=== PATIENT | male | born 1960 | race Caucasian/White ===

== ENCOUNTER 2021-11-05 11:05 | Observation (INO) | payer OTHER ==
--- NOTE | 2021-11-05 12:03 | ERPHSYRPT ---
- History of Present Illness Time Seen by Provider: 11/05/21 11:58 Historian: patient, family Exam Limitations: no limitations Patient Subjective Stated Complaint: Pt c/o of dizziness, burning in the chest, cloudiness in his head, and numbness and tingling in his left arm that has been off and on for the past week, pt has [facility] but symptoms came on again today and he came to the ER Triage Nursing Assessment: Pt brought to the ER by his , hypertensive, denies pain at this time, no stroke defecits, no problems with strength, no edema, no difficulties with breathing, no facial droop, no difficulty with speech, doesn't appear to be in any distress Physician History: dizziness for over a week and placed on meclizine but having chest pressure and radiating left arm today heart score 3 for + family and Cholesterol and EKG nonspecific and symptoms.No localizing neuro findings but will proceed with neuro w/u due to TIA concern or vascular concern and pt agrees. Timing/Duration: today Activities at Onset: none Quality: pressure, throbbing, tightness Location: central Chest Pain Radiation: jaw, neck, arm Severity of Pain-Max: moderate Modifying Factors: Improves With: nothing Associated Symptoms: dizziness Prior Chest Pain/Cardiac Workup: no prior cardiac workup Nitro Today/Relief: 0.4 mg x 1, provided by ED Aspirin Treatment Today: no aspirin today Allergies/Adverse Reactions: No Known Drug Allergies Allergy (Verified 11/05/21 11:48) Home Medications: Aspirin EC 81 mg [Ecotrin 81 mg] 81 mg PO DAILY 11/05/21 [History] Cholecalciferol (Vitamin D3) [Vitamin D] 1,000 unit PO DAILY 11/05/21 [History] Meclizine HCl 25 mg [Antivert 25 mg] 25 mg PO UD 11/05/21 [History] Multivitamin [Multi-Vitamin Daily] 1 each PO DAILY 11/05/21 [History] [place]-3/Dha/Epa/Fish Oil [Fish Oil 500 mg Softgel] 1 each PO DAILY 11/05/21 [History] Vitamin B Complex 1 each PO DAILY 11/05/21 [History] Travel Risk - International Travel Have you traveled outside of the country in past 3 weeks: No - Coronavirus Screening Are you exhibiting any of the following symptoms?: No - Vaccine Status Have you recieved a Covid-19 vaccination: Yes 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 - Vaccination Dates Date of 2cond Vaccination (if applicable): 12/2020 - Review of Systems Constitutional: No Fever, No Chills Eyes: No Symptoms Ears, Nose, & Throat: No Symptoms Respiratory: No Cough, No Dyspnea Cardiac: Chest Pain, No Edema, No Syncope Abdominal/Gastrointestinal: No Abdominal Pain, No Nausea, No Vomiting, No Diarrhea Genitourinary Symptoms: No Dysuria Musculoskeletal: No Back Pain, No Neck Pain Skin: No Rash Neurological: No Dizziness, No Focal Weakness, No Sensory Changes Psychological: No Symptoms Endocrine: No Symptoms All Other Systems: Reviewed and Negative - Past Medical History Pertinent Past Medical History: Yes Neurological History: No Pertinent History Cardiac History: No Pertinent History Respiratory History: No Pertinent History Endocrine Medical History: No Pertinent History Musculoskeletal History: Arthritis Other Medical History: L knee scope 2017 - Past Surgical History Past Surgical History: Yes Gastrointestinal: Hernia Repair Musculoskeletal: Orthopedic Surgery Other Surgical History: knee surgery - Social History Smoking Status: Former smoker Exposure to second hand smoke: No Drug Use: none Patient Lives Alone: No - Nursing Vital Signs Nursing Vital Signs: Initial Vital Signs Temperature 98.3 F 11/05/21 11:34 Pulse Rate 66 11/05/21 11:34 Respiratory Rate 15 11/05/21 11:34 Blood Pressure 157/90 11/05/21 11:34 O2 Sat by Pulse Oximetry 96 11/05/21 11:34 Pain Scale Pain Intensity 0 - Physical Exam General Appearance: no apparent distress, alert Eye Exam: PERRL/EOMI, eyes nml inspection Ears, Nose, Throat Exam: normal ENT inspection, moist mucous membranes Neck Exam: normal inspection, non-tender, supple, full range of motion Respiratory Exam: normal breath sounds, lungs clear, No respiratory distress Cardiovascular Exam: regular rate/rhythm, normal heart sounds Gastrointestinal/Abdomen Exam: soft, No tenderness, No mass Rectal Exam: deferred Back Exam: normal inspection, No CVA tenderness, No vertebral tenderness Extremity Exam: normal inspection, normal range of motion Neurologic Exam: alert, oriented x 3, cooperative, 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, normal mood/affect, nml station & gait, sensation nml, No motor deficits Skin Exam: normal color, warm, dry SpO2 Interpretation: normal SpO2: 96 O2 Delivery: Room Air - Course Nursing assessment & vital signs reviewed: Yes EKG Interpreted by Me: Left Heron Deviation, Non-specific ST Changes - CT Exams Head CT Interpretation: Tele-radiologist Report, No/Intracranial Hemorrhag Ordered Tests: Active Orders 24 hr Category Date Time Status EKG-ER Only STAT Care 11/05/21 12:05 Active IV Insertion STAT Care 11/05/21 12:05 Active NPO (ED) STAT Care 11/05/21 12:07 Active Pulse Oximetry (ED) STAT Care 11/05/21 12:05 Active Consult Neurology ROUTINE Cons 11/05/21 12:16 Completed CHEST 1 VIEW (PORTABLE) Stat Exams 11/05/21 13:48 Taken HEAD WITHOUT CONTRAST [CT] Stat Exams 11/05/21 13:05 Taken CBC W DIFF Stat Lab 11/05/21 12:33 Completed CMP Stat Lab 11/05/21 12:33 Completed D-DIMER QUANTITATIVE Stat Lab 11/05/21 12:33 Completed NT PRO BNP Stat Lab 11/05/21 12:33 Completed POCT GLUCOSE Stat Lab 11/05/21 11:36 Completed PROTIME WITH INR Stat Lab 11/05/21 12:33 Completed PTT Stat Lab 11/05/21 12:33 Completed TROPONIN Q3H Lab 11/05/21 12:33 Completed TROPONIN Q3H Lab 11/05/21 15:15 Completed TROPONIN Q3H Lab 11/05/21 18:15 Ordered TROPONIN Q3H Lab 11/05/21 21:15 Ordered TROPONIN Q3H Lab 11/06/21 00:15 Ordered Medication Summary Generic Name Dose Route Start Last Admin Trade Name Freq PRN Reason Stop Dose Admin Sodium Chloride 1,000 mls @ 100 mls/hr 11/05/21 12:15 11/05/21 12:22 Sodium Chloride 0.9% 1000 Ml IV 12/05/21 12:14 100 mls/hr .Q10H ELIJAH Administration Lab/Rad Data: Laboratory Result Diagrams 11/05/21 12:33 11/05/21 12:33 Laboratory Results 11/05/21 11/05/21 11/05/21 Range/Units 15:15 12:33 12:33 WBC (4.0-10.5) K/mm3 RBC (4.1-5.6) M/mm3 Hgb (12.5-18.0) gm/dl Hct (42-50) % MCV (78-100) fl MCH (26-32) pg MCHC (32-36) g/dl RDW (11.5-14.0) % Plt Count (150-450) K/mm3 MPV (7.5-11.0) fl Gran % (36.0-66.0) % Eos # (Auto) (0-0.5) Absolute Lymphs (auto) (1.0-4.6) Absolute Monos (auto) (0.0-1.3) Lymphocytes % (24.0-44.0) % Monocytes % (0.0-12.0) % Eosinophils % (0.00-5.0) % Basophils % (0.0-0.4) % Absolute Granulocytes (1.4-6.9) Basophils # (0-0.4) PT 10.8 (9.4-12.5) SECONDS INR 0.92 (0.8-3.0) APTT 30.4 (25.1-36.5) SECONDS D-Dimer 485 (215-500) ng/mL Sodium (137-145) mmol/L Potassium (3.5-5.1) mmol/L Chloride (98-107) mmol/L Carbon Dioxide (22-30) mmol/L Anion Gap (5-15) MEQ/L BUN (9-20) mg/dL Creatinine (0.66-1.25) mg/dL Estimated GFR ML/MIN Glucose (74-106) mg/dL POC Glucometer (74 to 106) mg/dL Calcium (8.4-10.2) mg/dL Total Bilirubin (0.2-1.3) mg/dL AST (17-59) U/L ALT (0-50) U/L Alkaline Phosphatase (38-126) U/L Troponin I < 0.012 < 0.012 (0.000-0.034) ng/mL NT-Pro-B Natriuret Pep (0-900) pg/mL Serum Total Protein (6.3-8.2) g/dL Albumin (3.5-5.0) g/dL 11/05/21 11/05/21 11/05/21 Range/Units 12:33 12:33 11:36 WBC 8.9 (4.0-10.5) K/mm3 RBC 4.84 (4.1-5.6) M/mm3 Hgb 14.7 (12.5-18.0) gm/dl Hct 43.4 (42-50) % MCV 89.7 (78-100) fl MCH 30.4 (26-32) pg MCHC 33.9 (32-36) g/dl RDW 13.6 (11.5-14.0) % Plt Count 355 (150-450) K/mm3 MPV 10.2 (7.5-11.0) fl Gran % 68.2 H (36.0-66.0) % Eos # (Auto) 0.08 (0-0.5) Absolute Lymphs (auto) 2.14 (1.0-4.6) Absolute Monos (auto) 0.58 (0.0-1.3) Lymphocytes % 24.1 (24.0-44.0) % Monocytes % 6.5 (0.0-12.0) % Eosinophils % 0.9 (0.00-5.0) % Basophils % 0.3 (0.0-0.4) % Absolute Granulocytes 6.05 (1.4-6.9) Basophils # 0.03 (0-0.4) PT (9.4-12.5) SECONDS INR (0.8-3.0) APTT (25.1-36.5) SECONDS D-Dimer (215-500) ng/mL Sodium 139 (137-145) mmol/L Potassium 3.8 (3.5-5.1) mmol/L Chloride 106 (98-107) mmol/L Carbon Dioxide 24 (22-30) mmol/L Anion Gap 12.8 (5-15) MEQ/L BUN 15 (9-20) mg/dL Creatinine 0.66 (0.66-1.25) mg/dL Estimated GFR > 60.0 ML/MIN Glucose 95 (74-106) mg/dL POC Glucometer 108 H (74 to 106) mg/dL Calcium 9.4 (8.4-10.2) mg/dL Total Bilirubin 1.30 (0.2-1.3) mg/dL AST 26 (17-59) U/L ALT 40 (0-50) U/L Alkaline Phosphatase 61 (38-126) U/L Troponin I (0.000-0.034) ng/mL NT-Pro-B Natriuret Pep 56.4 (0-900) pg/mL Serum Total Protein 7.6 (6.3-8.2) g/dL Albumin 4.5 (3.5-5.0) g/dL - Progress Progress: improved Air Movement: good Progress Note: 11/05/21 14:14 chest symptoms resolved prior to giving any nitro- pt advised that this could still be cardiac and that observiation in hospital was advisaed even with normal enzymes. 11/05/21 16:34 Neuro consult completed - no acute CVA. possible TIA - resolved discussed with pt and Dr. Duong and all agree best to place on obs and have [facility] neuro w/u in house and follow trops. Blood Culture(s) Obtained: No Antibiotics given: No Discussed with : Mariajose Will see patient in: hospital (observation) Counseled pt/family regarding: lab results, diagnosis, need for follow-up, rad results - Departure Departure Disposition: Observation Clinical Impression: Rule out TIA, Chest pain Condition: Good Critical Care Time: No Referrals: GERBER BONILLA [NON-STAFF PHY W/O PRIVILEGES] - Follow up/PCP as directed
[2021-11-05] MEDS: Sodium Chloride 0.9% 1000 ML 1,000 ML IV SCH (12:22)
[2021-11-05 12:36] LABS: Absolute Neutrophil Ct (ANC) 6.05 (1.4-6.9); Basophil (Absolute #) 0.03 (0-0.4); Eosinophil % 0.9 % (0.00-5.0); Eosinophil (Absolute #) 0.08 (0-0.5); Hematocrit 43.4 % (42-50); Hemoglobin 14.7 gm/dl (12.5-18.0); Lymphocyte (Absolute #) 2.14 (1.0-4.6); Lymphocytes % 24.1 % (24.0-44.0); Mean Cell Volume 89.7 fl (78-100); Mean Corpuscular Hemoglobin 30.4 pg (26-32); Mean Corpuscular Hgb Concent. 33.9 g/dl (32-36); Mean Platelet Volume 10.2 fl (7.5-11.0); Monocyte (Absolute #) 0.58 (0.0-1.3); Monocytes % 6.5 % (0.0-12.0); Neutrophil % 68.2 % (36.0-66.0); Platelet Count 355 K/mm3 (150-450); Red Blood Count 4.84 M/mm3 (4.1-5.6); Red Cell Distribution Width 13.6 % (11.5-14.0); White Blood Count 8.9 K/mm3 (4.0-10.5)
[2021-11-05 12:58] LABS: INR 0.92 (0.8-3.0); PROTIME 10.8 SECONDS (9.4-12.5)
[2021-11-05 13:00] LABS: PTT 30.4 SECONDS (25.1-36.5)
[2021-11-05 13:10] LABS: ALBUMIN 4.5 g/dL (3.5-5.0); ALKALINE PHOSPHATASE 61 U/L (38-126); ANION GAP 12.8 MEQ/L (5-15); BLOOD UREA NITROGEN 15 mg/dL (9-20); CHLORIDE 106 mmol/L (98-107); Calcium 9.4 mg/dL (8.4-10.2); Carbon Dioxide 24 mmol/L (22-30); Creatinine 1 0.66 mg/dL (0.66-1.25); EST GLOMERULAR FILTRATION RATE > 60.0 ML/MIN; Glucose 95 mg/dL (74-106); NT PRO BNP 56.4 pg/mL (0-900); Potassium 3.8 mmol/L (3.5-5.1); SGOT/AST 26 U/L (17-59); SGPT/ALT 40 U/L (0-50); SODIUM 139 mmol/L (137-145); Total Protein 7.6 g/dL (6.3-8.2)
[2021-11-05 17:51] LABS: INFLUENZA A NEGATIVE (NEGATIVE); INFLUENZA B NEGATIVE (NEGATIVE); RESPIRATORY SYNCTIAL VIRUS NEGATIVE (Negative); SARS-CoV-2 Xpert Express NEGATIVE (NEGATIVE)
--- NOTE | 2021-11-05 19:11 | XRAY ---
Indication: Pain and dizziness. Left hand numbness. Multiple contiguous axial images obtained through the head without contrast. Comparison: None Normal appearing brain parenchyma, ventricles, and bony calvarium for patient's age. Paranasal sinuses and mastoid air cells are clear. Impression: Normal CT head without contrast exam. Comment: Preliminary interpretation made by [facility]. No critical discrepancy.
--- NOTE | 2021-11-05 19:12 | XRAY ---
Indication: Chest pain. Comparison: None Portable apical lordotic chest demonstrates normal heart and lungs. Bony thorax intact with mild osteopenia and degenerative changes.
[2021-11-05] MEDS ORDERED: HUMULIN R SQ PRN (19:47)
[2021-11-05] MEDS ORDERED: MAALOX ES 30 ML UNIT DOSE PO PRN (19:47)
[2021-11-05] MEDS ORDERED: TYLENOL 325 MG PO PRN (19:47)
[2021-11-05] MEDS ORDERED: MILK OF MAGNESIA 30 ML PO PRN (19:47)
[2021-11-05] MEDS ORDERED: Senokot-S Tablet PO PRN (19:47)
[2021-11-05] MEDS ORDERED: Zofran 4 MG/2 ML VIAL IV PRN (19:47)
[2021-11-05] MEDS: Pepcid 20 MG VIAL IV SCH (22:59)
[2021-11-06] MEDS ORDERED: Sodium Chloride 0.9% 1000 ML 1,000 ML ONE (00:35)
[2021-11-06] MEDS: Sodium Chloride 0.9% 1000 ML 1,000 ML IV SCH ×2 (00:36→14:00)
[2021-11-06 04:47] LABS: Risk Ratio 4.7
[2021-11-06 08:02] VITALS: BP 142/77; PULSE 58; O2SAT 97
--- NOTE | 2021-11-06 09:38 | PCM.HP ---
History of Present Illness - Chief Complaint Chief Complaint: Chest pain rule out ACS History of Present Illness: is a 61 year old male pt with NLMD who was admitted through ER with CP and dizziness, to r/o TIA. He's had 4 episodes of lightheadedness, starting abotu 1 week ago. The first happened while driving, second in a car in parking lot, third standing watching TV, most recently while sitting on the porch and with that episode his L arm became numb and tingly. He also gets a burning pain in his temples bilaterally. 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 Episodes always happen at 10:30-11am. He had gone to urgent care and his ear was cleaned out and he was given meclizine (which he apparently didn't take). Pt has +FHx and hx increased cholesterol. - Review of Systems Cardiac: Chest Pain Neurological: Dizziness, Headache, Parasthesia Psychological: Anxiety (has been under a lot of stress in the past week) Medications & Allergies Home Medications: Home Medication List Aspirin EC 81 mg [Ecotrin 81 mg] 81 mg PO DAILY 11/05/21 [History Confirmed 11/05/21] Cholecalciferol (Vitamin D3) [Vitamin D] 1,000 unit PO DAILY 11/05/21 [History Confirmed 11/05/21] Meclizine HCl 25 mg [Antivert 25 mg] 25 mg PO UD 11/05/21 [History Confirmed 11/05/21] Multivitamin [Multi-Vitamin Daily] 1 each PO DAILY 11/05/21 [History Confirmed 11/05/21] [place]-3/Dha/Epa/Fish Oil [Fish Oil 500 mg Softgel] 1 each PO DAILY 11/05/21 [History Confirmed 11/05/21] Vitamin B Complex 1 each PO DAILY 11/05/21 [History Confirmed 11/05/21] Allergies/Adverse Reactions: Allergies Allergy/AdvReac Type Severity Reaction Status Date / Time No Known Drug Allergies Allergy Verified 11/05/21 11:48 - Past Medical History Past Medical History: Yes Neurological History: No Pertinent History Cardiac History: No Pertinent History Respiratory History: No Pertinent History Endocrine Medical History: No Pertinent History Musculoskelatal History: Arthritis Comment: L knee scope 2018 - Past Surgical History Past Surgical History: Yes GI Surgical History: Hernia Repair Musculskeletal Surgical Hx: Orthopedic Surgery Other Surgical History: knee surgery - Social History Smoking Status: Former smoker Exposure to second hand smoke: No Alcohol: None Drug Use: none - Physical Exam Vital Signs: Vital Signs - 24 hr Temp Pulse Resp BP Pulse Ox 11/06/21 08:00 97.8 F 58 L 17 142/77 97 11/06/21 03:19 97.1 F 55 L 17 143/71 96 11/06/21 00:00 97.1 F 66 16 130/72 96 11/05/21 20:05 81 17 97 11/05/21 20:00 98.3 F 81 17 131/81 97 11/05/21 19:00 82 18 131/81 97 11/05/21 17:13 65 17 149/84 96 11/05/21 16:57 63 16 126/80 96 11/05/21 16:36 96 11/05/21 14:00 56 L 18 145/77 97 11/05/21 13:06 56 L 18 130/83 97 11/05/21 12:17 97 11/05/21 11:34 98.3 F 66 15 157/90 96 General Appearance: no apparent distress, alert Neurologic Exam: oriented x 3, cooperative, 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, other (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 5/5 bilat) Eye Exam: eyes nml inspection Ears, Nose, Throat Exam: pharynx normal, moist mucous membranes, No pharyngeal erythema Neck Exam: normal inspection, non-tender, No lymphadenopathy Respiratory Exam: normal breath sounds, lungs clear, No crackles/rales, No rhonchi, No wheezing Cardiovascular Exam: regular rate/rhythm, normal heart sounds, No murmur Gastrointestinal/Abdomen Exam: soft, normal bowel sounds, No tenderness, No distention, No mass, No guarding, No rebound Back Exam: normal inspection, No CVA tenderness, No rash Extremity Exam: normal inspection, No pedal edema, No swelling Skin Exam: normal color, warm, dry, No rash Results - Labs Lab/Micro Results: Lab Results-Last 24 Hours 11/05/21 11/05/21 11/05/21 Range/Units 11:36 12:33 12:33 WBC 8.9 (4.0-10.5) K/mm3 RBC 4.84 (4.1-5.6) M/mm3 Hgb 14.7 (12.5-18.0) gm/dl Hct 43.4 (42-50) % MCV 89.7 (78-100) fl MCH 30.4 (26-32) pg MCHC 33.9 (32-36) g/dl RDW 13.6 (11.5-14.0) % Plt Count 355 (150-450) K/mm3 MPV 10.2 (7.5-11.0) fl Gran % 68.2 H (36.0-66.0) % Eos # (Auto) 0.08 (0-0.5) Absolute Lymphs (auto) 2.14 (1.0-4.6) Absolute Monos (auto) 0.58 (0.0-1.3) Lymphocytes % 24.1 (24.0-44.0) % Monocytes % 6.5 (0.0-12.0) % Eosinophils % 0.9 (0.00-5.0) % Basophils % 0.3 (0.0-0.4) % Absolute Granulocytes 6.05 (1.4-6.9) Basophils # 0.03 (0-0.4) PT (9.4-12.5) SECONDS INR (0.8-3.0) APTT (25.1-36.5) SECONDS D-Dimer (215-500) ng/mL Sodium 139 (137-145) mmol/L Potassium 3.8 (3.5-5.1) mmol/L Chloride 106 (98-107) mmol/L Carbon Dioxide 24 (22-30) mmol/L Anion Gap 12.8 (5-15) MEQ/L BUN 15 (9-20) mg/dL Creatinine 0.66 (0.66-1.25) mg/dL Estimated GFR > 60.0 ML/MIN Glucose 95 (74-106) mg/dL POC Glucometer 108 H (74 to 106) mg/dL Hemoglobin A1c (4.5-6.0) % Calcium 9.4 (8.4-10.2) mg/dL Total Bilirubin 1.30 (0.2-1.3) mg/dL AST 26 (17-59) U/L ALT 40 (0-50) U/L Alkaline Phosphatase 61 (38-126) U/L Troponin I (0.000-0.034) ng/mL NT-Pro-B Natriuret Pep 56.4 (0-900) pg/mL Serum Total Protein 7.6 (6.3-8.2) g/dL Albumin 4.5 (3.5-5.0) g/dL Triglycerides (30-150) mg/dL Cholesterol (50-200) mg/dL LDL Cholesterol (30-100) mg/dL HDL Cholesterol (40-60) mg/dL Heart Disease Risk Ratio Influenza Type A Ag (NEGATIVE) Influenza Type B Ag (NEGATIVE) RSV (PCR) (Negative) SARS-CoV-2 (PCR) (NEGATIVE) 11/05/21 11/05/21 11/05/21 Range/Units 12:33 12:33 15:15 WBC (4.0-10.5) K/mm3 RBC (4.1-5.6) M/mm3 Hgb (12.5-18.0) gm/dl Hct (42-50) % MCV (78-100) fl MCH (26-32) pg MCHC (32-36) g/dl RDW (11.5-14.0) % Plt Count (150-450) K/mm3 MPV (7.5-11.0) fl Gran % (36.0-66.0) % Eos # (Auto) (0-0.5) Absolute Lymphs (auto) (1.0-4.6) Absolute Monos (auto) (0.0-1.3) Lymphocytes % (24.0-44.0) % Monocytes % (0.0-12.0) % Eosinophils % (0.00-5.0) % Basophils % (0.0-0.4) % Absolute Granulocytes (1.4-6.9) Basophils # (0-0.4) PT 10.8 (9.4-12.5) SECONDS INR 0.92 (0.8-3.0) APTT 30.4 (25.1-36.5) SECONDS D-Dimer 485 (215-500) ng/mL Sodium (137-145) mmol/L Potassium (3.5-5.1) mmol/L Chloride (98-107) mmol/L Carbon Dioxide (22-30) mmol/L Anion Gap (5-15) MEQ/L BUN (9-20) mg/dL Creatinine (0.66-1.25) mg/dL Estimated GFR ML/MIN Glucose (74-106) mg/dL POC Glucometer (74 to 106) mg/dL Hemoglobin A1c (4.5-6.0) % Calcium (8.4-10.2) mg/dL Total Bilirubin (0.2-1.3) mg/dL AST (17-59) U/L ALT (0-50) U/L Alkaline Phosphatase (38-126) U/L Troponin I < 0.012 < 0.012 (0.000-0.034) ng/mL NT-Pro-B Natriuret Pep (0-900) pg/mL Serum Total Protein (6.3-8.2) g/dL Albumin (3.5-5.0) g/dL Triglycerides (30-150) mg/dL Cholesterol (50-200) mg/dL LDL Cholesterol (30-100) mg/dL HDL Cholesterol (40-60) mg/dL Heart Disease Risk Ratio Influenza Type A Ag (NEGATIVE) Influenza Type B Ag (NEGATIVE) RSV (PCR) (Negative) SARS-CoV-2 (PCR) (NEGATIVE) 11/05/21 11/05/21 11/05/21 Range/Units 16:58 18:13 21:11 WBC (4.0-10.5) K/mm3 RBC (4.1-5.6) M/mm3 Hgb (12.5-18.0) gm/dl Hct (42-50) % MCV (78-100) fl MCH (26-32) pg MCHC (32-36) g/dl RDW (11.5-14.0) % Plt Count (150-450) K/mm3 MPV (7.5-11.0) fl Gran % (36.0-66.0) % Eos # (Auto) (0-0.5) Absolute Lymphs (auto) (1.0-4.6) Absolute Monos (auto) (0.0-1.3) Lymphocytes % (24.0-44.0) % Monocytes % (0.0-12.0) % Eosinophils % (0.00-5.0) % Basophils % (0.0-0.4) % Absolute Granulocytes (1.4-6.9) Basophils # (0-0.4) PT (9.4-12.5) SECONDS INR (0.8-3.0) APTT (25.1-36.5) SECONDS D-Dimer (215-500) ng/mL Sodium (137-145) mmol/L Potassium (3.5-5.1) mmol/L Chloride (98-107) mmol/L Carbon Dioxide (22-30) mmol/L Anion Gap (5-15) MEQ/L BUN (9-20) mg/dL Creatinine (0.66-1.25) mg/dL Estimated GFR ML/MIN Glucose (74-106) mg/dL POC Glucometer 112 H (74 to 106) mg/dL Hemoglobin A1c (4.5-6.0) % Calcium (8.4-10.2) mg/dL Total Bilirubin (0.2-1.3) mg/dL AST (17-59) U/L ALT (0-50) U/L Alkaline Phosphatase (38-126) U/L Troponin I < 0.012 (0.000-0.034) ng/mL NT-Pro-B Natriuret Pep (0-900) pg/mL Serum Total Protein (6.3-8.2) g/dL Albumin (3.5-5.0) g/dL Triglycerides (30-150) mg/dL Cholesterol (50-200) mg/dL LDL Cholesterol (30-100) mg/dL HDL Cholesterol (40-60) mg/dL Heart Disease Risk Ratio Influenza Type A Ag NEGATIVE (NEGATIVE) Influenza Type B Ag NEGATIVE (NEGATIVE) RSV (PCR) NEGATIVE (Negative) SARS-CoV-2 (PCR) NEGATIVE (NEGATIVE) 11/05/21 11/06/21 11/06/21 Range/Units 21:17 04:09 04:09 WBC (4.0-10.5) K/mm3 RBC (4.1-5.6) M/mm3 Hgb (12.5-18.0) gm/dl Hct (42-50) % MCV (78-100) fl MCH (26-32) pg MCHC (32-36) g/dl RDW (11.5-14.0) % Plt Count (150-450) K/mm3 MPV (7.5-11.0) fl Gran % (36.0-66.0) % Eos # (Auto) (0-0.5) Absolute Lymphs (auto) (1.0-4.6) Absolute Monos (auto) (0.0-1.3) Lymphocytes % (24.0-44.0) % Monocytes % (0.0-12.0) % Eosinophils % (0.00-5.0) % Basophils % (0.0-0.4) % Absolute Granulocytes (1.4-6.9) Basophils # (0-0.4) PT (9.4-12.5) SECONDS INR (0.8-3.0) APTT (25.1-36.5) SECONDS D-Dimer (215-500) ng/mL Sodium (137-145) mmol/L Potassium (3.5-5.1) mmol/L Chloride (98-107) mmol/L Carbon Dioxide (22-30) mmol/L Anion Gap (5-15) MEQ/L BUN (9-20) mg/dL Creatinine (0.66-1.25) mg/dL Estimated GFR ML/MIN Glucose (74-106) mg/dL POC Glucometer (74 to 106) mg/dL Hemoglobin A1c (4.5-6.0) % Calcium (8.4-10.2) mg/dL Total Bilirubin (0.2-1.3) mg/dL AST (17-59) U/L ALT (0-50) U/L Alkaline Phosphatase (38-126) U/L Troponin I < 0.012 < 0.012 (0.000-0.034) ng/mL NT-Pro-B Natriuret Pep (0-900) pg/mL Serum Total Protein (6.3-8.2) g/dL Albumin (3.5-5.0) g/dL Triglycerides 101 (30-150) mg/dL Cholesterol 238 H (50-200) mg/dL LDL Cholesterol 150 H (30-100) mg/dL HDL Cholesterol 51 (40-60) mg/dL Heart Disease Risk Ratio 4.7 Influenza Type A Ag (NEGATIVE) Influenza Type B Ag (NEGATIVE) RSV (PCR) (Negative) SARS-CoV-2 (PCR) (NEGATIVE) 11/06/21 11/06/21 Range/Units 04:09 07:30 WBC (4.0-10.5) K/mm3 RBC (4.1-5.6) M/mm3 Hgb (12.5-18.0) gm/dl Hct (42-50) % MCV (78-100) fl MCH (26-32) pg MCHC (32-36) g/dl RDW (11.5-14.0) % Plt Count (150-450) K/mm3 MPV (7.5-11.0) fl Gran % (36.0-66.0) % Eos # (Auto) (0-0.5) Absolute Lymphs (auto) (1.0-4.6) Absolute Monos (auto) (0.0-1.3) Lymphocytes % (24.0-44.0) % Monocytes % (0.0-12.0) % Eosinophils % (0.00-5.0) % Basophils % (0.0-0.4) % Absolute Granulocytes (1.4-6.9) Basophils # (0-0.4) PT (9.4-12.5) SECONDS INR (0.8-3.0) APTT (25.1-36.5) SECONDS D-Dimer (215-500) ng/mL Sodium (137-145) mmol/L Potassium (3.5-5.1) mmol/L Chloride (98-107) mmol/L Carbon Dioxide (22-30) mmol/L Anion Gap (5-15) MEQ/L BUN (9-20) mg/dL Creatinine (0.66-1.25) mg/dL Estimated GFR ML/MIN Glucose (74-106) mg/dL POC Glucometer 115 H (74 to 106) mg/dL Hemoglobin A1c 5.54 (4.5-6.0) % Calcium (8.4-10.2) mg/dL Total Bilirubin (0.2-1.3) mg/dL AST (17-59) U/L ALT (0-50) U/L Alkaline Phosphatase (38-126) U/L Troponin I (0.000-0.034) ng/mL NT-Pro-B Natriuret Pep (0-900) pg/mL Serum Total Protein (6.3-8.2) g/dL Albumin (3.5-5.0) g/dL Triglycerides (30-150) mg/dL Cholesterol (50-200) mg/dL LDL Cholesterol (30-100) mg/dL HDL Cholesterol (40-60) mg/dL Heart Disease Risk Ratio Influenza Type A Ag (NEGATIVE) Influenza Type B Ag (NEGATIVE) RSV (PCR) (Negative) SARS-CoV-2 (PCR) (NEGATIVE) Accuchecks Date 11/06/21 Date 11/05/21 Time 07:25 Time 22:00 - Radiology Impressions Radiology Exams & Impressions: Radiology Procedures Category Date Time Status CHEST 1 VIEW (PORTABLE) Stat Exams 11/05/21 13:48 Completed ECHO W/2D AND DOPPLER [US] Routine Exams 11/06/21 10:00 Taken HEAD WITHOUT CONTRAST [CT] Stat Exams 11/05/21 13:05 Completed MRA BRAIN WITH CONTRAST [MRI] Routine Exams 11/06/21 08:00 Ordered MRA NECK WITH CONTRAST [MRI] Routine Exams 11/06/21 08:00 Ordered MRI BRAIN W & W/O CONTRAST [MRI] Routine Exams 11/06/21 08:00 Ordered - Other Procedures and Tests Respiratory Therapy 11/07/21 05:00 EKG DAILY 11/08/21 05:00 EKG DAILY Assessment/Plan (1) Chest pain Current Visit: Yes Status: Acute Qualifiers: Chest pain type: unspecified Qualified Code(s): R07.9 - Chest pain, unspecified Assessment & Plan: troponins neg x 5. Code(s): R07.9 - CHEST PAIN, UNSPECIFIED (2) TIA (transient ischemic attack) Current Visit: Yes Status: Suspected Assessment & Plan: Pt to have MRI head, MRA head/neck per teleneurology consult (see their note for further details). Labs done/pending. on ASA 81mg/d and lovenox 40mg SQ daily. Will need to see neurology OP. If there is intracranial atherosclerosis, will load plavix 300mg then take 75mg/d for 90d. Code(s): G45.9 - TRANSIENT CEREBRAL ISCHEMIC ATTACK, UNSPECIFIED (3) Dizziness Current Visit: Yes Status: Resolved Code(s): R42 - DIZZINESS AND GIDDINESS (4) Headache Current Visit: Yes Status: Acute Qualifiers: Headache type: unspecified Headache chronicity pattern: episodic headache Intractability: not intractable Qualified Code(s): R51.9 - Headache, unspecified Assessment & Plan: Check esr to r/o temporal arteritis. Code(s): R51.9 - HEADACHE, UNSPECIFIED
[2021-11-06] MEDS: Pepcid 20 MG VIAL IV SCH (09:42)
[2021-11-06] MEDS ORDERED: ENOXAPARIN SODIUM SQ SCH (10:00)
[2021-11-06] MEDS ORDERED: Ecotrin 325 MG PO SCH (10:00)
[2021-11-06] MEDS ORDERED: ECOTRIN 81 MG PO SCH (10:00)
[2021-11-06] MEDS ORDERED: Ativan 2 MG/1 ML VIAL IV ONE (11:48)
--- NOTE | 2021-11-06 14:03 | XRAY ---
Indication: TIA. Conventional contrast enhanced MRA neck performed using 20 cc Dotarem contrast. Comparison: None Visualized common carotid, carotid bulb, internal carotid, and external carotid arteries are bilaterally normal in MRA appearance. Vertebral arteries are bilaterally symmetric with signal loss involving the transverse segment bilaterally. Otherwise no critical stenosis, obstruction, or AV malformation. Impression: 1. Signal loss transverse segment of both distal vertebral arteries. Remaining vertebral arteries proximal and distal to this are normal in MRA appearance. 2. Remaining MRA neck with contrast exam is negative for critical stenosis/obstruction.
--- NOTE | 2021-11-06 14:05 | XRAY ---
Indication: TIA. Multi-slab 3-D [id number] MRA [place] performed. Comparison: None Distal internal carotid arteries are normal in course and caliber bilaterally. Normal carotid terminus with normal branching A1 and M1 segments bilaterally. More distal anterior cerebral and middle cerebral arteries are normal in MRA appearance. Posterior circulation demonstrates normal MRA appearance to the basilar, left/right posterior cerebral, and left/right superior cerebellar arteries. Impression: Normal MRA [place].
--- NOTE | 2021-11-06 14:07 | XRAY ---
Indication: TIA. Sagittal, coronal, and axial MRI brain performed using pre-and post T1, T2, FLAIR, diffusion, and ADC sequences. 20 cc Dotarem contrast used. Comparison: None Ventriculosulcal pattern appears symmetric. No acute intracranial hemorrhage, abnormal extra-axial fluid collection, or mass effect. Diffusion images are negative for restricted signal. Following gadolinium, there is no abnormal enhancing intra or extra-axial mass. Fourth ventricle is midline without hydrocephalus. 7/8 cranial nerve complex bilaterally symmetric. Normal flow void signal within the major intracerebral circulation. Normal appearing craniocervical junction and sella turcica. Paranasal sinuses are clear. Impression: Negative MRI brain with contrast exam.
[2021-11-06] MEDS ORDERED: LIPITOR 40MG PO SCH (22:00)
== END 2021-11-06 16:17 | disposition home or self-care (01) ==
LOC: ED 11:05 → MED SURG 19:41
PROVIDERS: ADMIT Family Medicine; ATTEND Family Medicine
DX: R07.9 Chest pain, unspecified (principal); G45.9 Transient cerebral ischemic attack, unspecified; R42 Dizziness and giddiness; R51.9 Headache, unspecified; F41.9 Anxiety disorder, unspecified; Z20.828 Contact with and (suspected) exposure to other viral communicable diseases; Z79.899 Other long term (current) drug therapy
CPT/HCPCS: 0241U; 36000; 36415; 70450; 70544; 70548; 70553; 71045; 80053; 80061; 82947; 83036; 83721; 83880; 84443; 84484; 85025; 85379; 85610; 85652; 85730; 93005; 93268; 93306; 94760; 99285; G0378; J1650; J2060; A9270-GY

== ENCOUNTER 2022-01-25 08:20 | Day surgery (SDC) | payer OTHER ==
--- NOTE | 2022-01-18 07:52 | HP ---
DATE OF SURGERY: 01/25/2022 HISTORY OF PRESENT ILLNESS: The patient is a 61-year-old male who presents for screening colonoscopy. The patient has not had any colonoscopy to date. The patient denies GI signs or symptoms at this time. The patient reports father had colon cancer diagnosed in his mid-50's. PAST MEDICAL HISTORY: Hyperlipidemia. PAST SURGICAL HISTORY: Right knee surgery. ALLERGIES: NKDA. MEDICATIONS: Aspirin, vitamins, vitamin B, atorvastatin. FAMILY HISTORY: Bone cancer. SOCIAL HISTORY: Two to six alcoholic drinks every other day. REVIEW OF SYSTEMS: CONSTITUTIONAL: Denies fever or chills. CHEST: Denies shortness of breath. CVS: Denies chest pain. ABDOMEN: Denies abdominal pain, nausea, vomiting, diarrhea, constipation or rectal bleeding. PHYSICAL EXAMINATION: GENERAL: No acute distress. CHEST: Nonlabored. No shortness of breath. CVS: Regular rate and rhythm. ABDOMEN: Soft. IMPRESSION: Screening and family history of colon cancer. PLAN: Colonoscopy with Dr. Teo Macias. As dictated by Ade Cade NP.
[~2022-01-25 08:20] MED LIST: Lactated Ringers 1,000 ML IV ONE
[2022-01-25] MEDS ORDERED: Lactated Ringers 1,000 ML IV SCH (08:30)
[2022-01-25] MEDS ORDERED: Versed 2 MG/2 ML Injection ONE (10:00)
[2022-01-25] MEDS ORDERED: DIPRIVAN 200 MG/20 ML IV ONE (10:00)
[2022-01-25 10:42] VITALS: BP 147/88; PULSE 67; O2SAT 98
--- NOTE | 2022-01-25 11:39 | OP ---
SURGERY DATE/TIME: 01/25/2022 1002 PREOPERATIVE DIAGNOSIS: 61 years old with family history of colon cancer. No scope to date. POSTOPERATIVE DIAGNOSIS: Findings normal. PROCEDURE: Colonoscopy complete to cecum. SURGEON: Teo Macias M.D. ANESTHESIA: MAC. COMPLICATIONS: None. CONDITION: Stable. INDICATION: A patient requiring evaluation. He does have family history of father of colon cancer. He has not had a screening exam yet. DESCRIPTION OF PROCEDURE: He is taken to endoscopy. Left lateral decubitus position. Anal digital examination satisfactory. Prostate satisfactory. Scope introduced. Scope advanced to the cecum. Base of cecum, ileocecal valve was normal. Ascending, hepatic, transverse, splenic, descending, sigmoid, rectum, anus was normal. Slightly long colon but totally normal. PLAN: Follow up five years per the patient's history.
== END 2022-01-25 10:51 | disposition home or self-care (01) ==
LOC: SDC 08:20
PROVIDERS: ATTEND Surgery
DX: Z12.11 Encounter for screening for malignant neoplasm of colon (principal); Z80.0 Family history of malignant neoplasm of digestive organs
CPT/HCPCS: J2250; J2704